=== PATIENT | female | born 1995 | race African-American/Black ===

== ENCOUNTER 2022-07-11 08:49 | Inpatient (IN) ==
--- NOTE | 2022-07-06 14:44 | Anesthesiology Consultation ---
Date of Service July 06, 2022 Assessment & Plan (1) Encounter for pre-operative examination: Chart Review Chart Review: entry engineer initiated -COVID screening: Per PAT nursing assessment on 07/06/22. No known COVID-19 po sitive contacts or current COVID-19 related symptoms. Travel screen negative. Patient vaccinated for Covid. At surgeon discretion if preop Covid testing being done. History Surgery Operation Date: 07/11/22 10:25 Proposed Procedures p Section (Delivery of Baby Through Abdominal Incision) - Kaci Bar MD, FACOG Height/Weight Height: 5 ft 6 in Weight: 60 kg Allergies Allergy/AdvReac Type Severity Reaction Status Date / Time No Known Allergies Allergy Verified 07/06/22 14:05 Medications Home Medications Medication Instructions Recorded Confirmed Last Taken prenat.vits,aman,qum-judm-lrnuw 1 tab PO DAILY #90 tabs 01/05/22 07/06/22 Unknown ferrous sulfate 134 mg (27 mg 134 mg PO UD 07/06/22 07/06/22 Unknown iron) tablet Past Medical History Medical History Patient denies significant medical history Past Family History Family History Father Diabetes Hypertension Denies family history of Ovarian cancer Breast cancer Colorectal cancer Past Surgical History Surgical History S/P section Social History Smoking Status: Never smoker Do You Dip or Chew Tobacco: No Hx Alcohol Use: No Hx Substance Use: No substance use type: does not use
--- NOTE | 2022-07-07 17:53 | History & Physical Report ---
Date of Service July 07, 2022 Assessment & Plan (1) Previous delivery affecting , antepartum: (2) with 39 completed weeks gestation: Plan Plan repeat c/s. The risks of the procedure discussed with the patient including anesthesia, bleeding, transfusion, infection and poor wound healing, damage to surrounding structures, need for further surgery, injury to baby, heart attack, blood clot , stroke and . Consent reviewed and signed. Questions answered. Planned for 07/11/22. History of Present Illness Chief Complaint: presents for repeat c/s Primary Care Provider: NO PCP Patient is a 26yoaf, G2P 1001 who presents at 39 weeks for repeat c/s. Her first c/s was in [facility] for suspected LGA and FTP and unable to obtain report. Given this, have recommended c/s. Her has been uncomplicated. and Delivery Plans Previous in [facility] -plans repeat at 39 wks--having issues getting report. C/S SCHEDULED FOR 07/11/[address] VÁZQUEZ +GBS in genital culture-treat in labor OB Labs: Blood Type O Positive 12/15/21 Antibody Screen NEGATIVE 12/15/21 Hemoglobin 10.6 g/dl (12.0-16.0) L 04/28/22 Hematocrit 32.6 % (34.1-44.9) L 04/28/22 Mean Corpuscular Volume 82.7 fL (80-100) 12/15/21 Platelet Count 293 K/uL (130-400) 12/15/21 Rubella IgG Antibody Immune (Immune) 12/15/21 Rapid Plasma Reagin Nonreactive (Nonreactive) 12/15/21 Hepatitis B Surface Antigen. NON-REACTIVE (NON-REACTIVE) 12/15/21 Hepatitis C Antibody (EIA) NON-REACTIVE (NON-REACTIVE) 12/15/21 HIV (1&2) Ag and Ab Confirmation NON-REACTIVE (NON-REACTIVE) 12/15/21 Glucose 1 Hour 50 gm Load 134 mg/dl (70-130) H 04/28/22 Maternal Serum Alpha Fetoprotein 24.0 ng/mL 02/02/22 OB Optional Labs: Chlamydia trachomatis RNA NOT DETECTED (NOT DETECTED) 12/15/21 Neisseria gonorrhoeae RNA NOT DETECTED (NOT DETECTED) 12/15/21 Alpha Fetoprotein Triple Screen SEE NOTE 02/02/22 Labs Reviewed: neg cf/sma low risk panorama afp neg GBS positive Allergies Allergy/AdvReac Type Severity Reaction Status Date / Time No Known Allergies Allergy Verified 07/07/22 13:37 Home Medications Medication Instructions Recorded Confirmed Type prenat.vits,aman,ajs-xgps-eggvj 1 tab PO DAILY #90 tabs 01/05/22 07/07/22 Rx ferrous sulfate 134 mg (27 mg 134 mg PO UD 07/06/22 07/07/22 History iron) tablet Patient History Medical History Patient denies significant medical history Surgical History S/P section Family History Father Diabetes Hypertension Denies family history of Ovarian cancer Breast cancer Colorectal cancer Social History Smoking Status: Never smoker Second Hand Exposure: No; Hx Alcohol Use: No Hx Substance Use: No Preferred Language: Maldivian Communication Ability: Effective Automobile Seat Cover Installer Required: No Beliefs That Will Affect Care: None marital status: marital status details: Marlo Lee (33) [phone] Current Living Situation: Spouse and Family Current Living Situation Comment: lives with spouse, son, no pets current occupational status: unemployed current occupation: homemaker Feels Safe at Home: Yes Assistive Devices: None OB History Past Pregnancies Del. Date GA wks Lbr Lgth wt Sex Type del Anes Place Del Prov ? Comment 03/21/19 38 7-4 MB O ther [place] No LGA, FTP PSYCHOLOGIST CHIEF History noncontributory Physical Exam Constitutional: WD/WN, vitals as above Neck: trachea midline, no thyromegaly Respiratory: normal respiratory effort, lungs clear to auscultation Cardiovascular: RRR, no murmur, no edema Extremities: no calf tenderness and no edema Gastrointestinal (Abdomen): soft, gravid, nt, keloid scar. Coding Level of Care Code None Diagnoses Previous delivery affecting , antepartum O34.219 with 39 completed weeks gestation Z3A.39
[~2022-07-11 08:49] MED LIST: CITRIC ACID/SODIUM CITRATE 15 ML UDC PO SCH; ceFAZolin 2000MG 2,000 MG/15 ML SYR IV SCH
[2022-07-11] MEDS ORDERED: LACTATED RINGER'S 1,000 ML IV SCH ×3 (09:15→12:00)
[2022-07-11 09:34] LABS: Basophils # (auto) 0.02 K/uL (0-0.2); Basophils % (auto) 0.3 %; Eosinophils # (auto) 0.08 K/uL (0-0.50); Eosinophils % (auto) 1.2 %; Hemoglobin 11.7 g/dl (12.0-16.0); Immature Granulocytes # (auto) 0.06 K/uL (0.00-0.02); Immature Granulocytes % (auto) 0.9 %; Lymphocytes # (auto) 1.34 K/uL (1.2-3.4); Lymphocytes % (auto) 19.4 %; Mean Corpuscular Hemoglobin 28.1 pg (25.0-34.0); Mean Corpuscular Hgb Conc 33.4 g/dL (32.0-36.0); Mean Corpuscular Volume 84.1 fL (80.0-100.0); Mean Platelet Volume 11.7 fL (9.4-12.3); Monocytes % (auto) 10.1 %; Neutrophils % (auto) 68.1 %; Platelet Count 165 K/uL (130-400); RDW Coefficient of Variation 15.9 % (11.5-14.5); RDW Standard Deviation 49.3 fL (36.4-46.3); Red Blood Count 4.16 M/uL (3.93-5.22)
[2022-07-11] MEDS ORDERED: MoRPHine SULFATE PF 1 MG/ML 10 ML AMP/VIAL ONE (10:22)
[2022-07-11] MEDS ORDERED: fentaNYL citrate 100 MCG/2 ML VIAL ONE (10:22)
[2022-07-11] MEDS ORDERED: OXYTOCIN 10 UNITS/ML 10ML VIAL ONE (10:22)
--- NOTE | 2022-07-11 10:59 | History & Physical Bridge Note ---
Date of Service July 11, 2022 History & Physical Bridge Note I have examined the patient, reviewed the History & Physical and in the interval since the performance of the History & Physical I have noted the following changes of clinical significance: no changes noted
[2022-07-11] MEDS ORDERED: PHENYLEPHRINE HCL 10 MG/ML VIAL ONE (12:05)
[2022-07-11] MEDS ORDERED: NALBUPHINE HCL INJ 10 MG/ML AMP IV PRN (12:07)
[2022-07-11] MEDS ORDERED: ePHEDrine sulfate 50 MG/ML AMP IV PRN (12:07)
[2022-07-11] MEDS ORDERED: NALOXONE HCL 1 MG in SODIUM CHLORIDE 0.9% 1000ML 1,000 ML IV PRN (12:07)
[2022-07-11] MEDS ORDERED: MoRPHine SULFATE PF 1 MG/ML 10 ML AMP/VIAL INT SPINAL ONE (12:07)
[2022-07-11] MEDS ORDERED: NALOXONE HCL 0.08 MG in SYRINGE 1.8 ML IV PRN (12:07)
[2022-07-11] MEDS ORDERED: ONDANSETRON INJ 2 MG/ML 2 ML VIAL IV PRN (12:07)
[2022-07-11] MEDS ORDERED: LACTATED RINGER'S 500 ML IV PRN (12:07)
[2022-07-11] MEDS ORDERED: diphenhydrAMINE 50 MG/ML VIAL IV PRN (12:07)
[2022-07-11] MEDS ORDERED: KETOROLAC 30 MG/ML VIAL IV PRN (12:07)
[2022-07-11] MEDS ORDERED: NALOXONE HCL 0.4 MG/1 ML VIAL/CARP IV PRN (12:07)
[2022-07-11] MEDS ORDERED: MEPERIDINE HCL 25 MG/ML CARP/VIAL IV PRN (12:07)
[2022-07-11] MEDS ORDERED: SODIUM CHLORIDE 0.9% 1000ML 1,000 ML IV SCH (12:15)
[2022-07-11] MEDS ORDERED: NO NARCOTICS OR SEDATIVES SCH (12:15)
[2022-07-11] MEDS ORDERED: DC INTRASPINAL MORPHINE SCH (12:15)
[2022-07-11] MEDS ORDERED: MAGNESIUM HYDROXIDE SUSP 30 ML UDC PO PRN (12:55)
[2022-07-11] MEDS ORDERED: DIPHTHERIA/TETANUS/PERTUSSIS 0.5mL SYR/VIAL (Age 7+yrs) IM ONE (12:55)
[2022-07-11] MEDS ORDERED: HYDROCORTISONE ACETATE 25 MG SUPP PR PRN (12:55)
[2022-07-11] MEDS ORDERED: SENNA 8.6 MG TAB PO PRN (12:55)
[2022-07-11] MEDS ORDERED: BENZOCAINE 20% AER SPR 82.5 GM CAN EXT PRN (12:55)
[2022-07-11 13:01] LABS: Base Excess Cord Arterial Bld -7.1 mEq/L (-9-1.8); CO2 Cord Arterial Blood 63 mmHg (39.1-73.5); HCO3 Cord Arterial Blood 23 mmol/L (19.7-28.5); Oxygen Sat Cord Arterial Blood < 60.0 % (<60); PO2 Cord Arterial Blood 26 mmHg (4.1-31.7); pH Cord Arterial Blood 7.16 (7.1-7.38)
--- NOTE | 2022-07-11 13:02 | Operative Report ---
PG Post Operative Report Pre & Post Diagnosis Operation Date: 07/11/22 10:15 Pre-Op Diagnosis: 1.IUP at 39 weeks 2. History of prior Post-Op Diagnosis: Same I identified the patient and participated in the time-out.: Yes Procedure Operation Date: 07/11/22 10:15 Actual Procedures p repeat lower transverse Section in LD; Repeat Lower Uterine Transverse for the of a live infant girl at 1219 - Kaci Bar MD, FACOG Surgeon Kaci Bar MD, FACOG Tobacco Classer Jennifer Stanford RN, MRafia Morrissey, MS 2 Estimated Blood Loss 600 Findings Consistent with Post-Op Diagnosis viable , apgars 7/8. nl uterus /tubes/ovs bilaterally. Somewhat thin shai. Fluids 1400cc Specimens placenta Drains graham Anesthesia Type Spinal Complications none Disposition Accompanied Patient To Recovery: Yes Disposition: L&D Indications Patient is a 26yo female with iup at 39 weeks. Had primary c/s in [facility]. Unable to get operative report. Recommend repeat c/s. Description of Procedure The patient was taken to the operating room where she was identified verbally and by bracelet. She was seated on the operating table where a spinal anesthetic was placed by anesthesia. She was then placed in the supine position with a leftward tilt. A Graham catheter was placed sterilely. the patient was prepped and draped in a normal standard fashion. the anesthetic was tested and found to be adequate. A time-out was held, identifying correct patient, procedure, positioning and preoperative antibiotics. There were no concerns. A Pfannenstiel skin incision was made with a knife and taken down to the underlying layer of fascia with the knife and Bovie electrocautery. Bleeding was attended to with the Bovie. The fascia was incised in the midline with the knife and taken out laterally with scissors. The superior edge of the fascial incision was grasped, elevated and the underlying layer of rectus muscle was taken off bluntly and with scissors. In a similar fashion, the inferior edge of the fascial incision was grasped, elevated and the underlying layer of rectus muscle was taken off bluntly and with scissors. There were dense adhesions of the fascia to the muscle.l The muscles were bluntly in the midline. The peritoneum was entered sharply. The incision was then stretched. The bladder blade was placed. The vesicouterine peritoneum was identified, entered with scissors and taken out laterally with scissors. The bladder flap was created digitally A hysterotomy incision was scored with a knife and the incision was stretched superiorly and inferiorly with the marine railway operator's fingers. The operators hand was placed into the incision and the head was delivered with vacuum assist. No nuchal cord. The nose and mouth were bulb suctioned. the rest of the infant was then delivered without difficulty. The nose and mouth were again bulb suctioned. The cord was clamped and cut and the infant was then handed off to the awaiting manager adult for drying and attention. Cord blood and segment were obtained. The placenta was expressed. The uterus was exteriorized and cleared of all clot and debris with moistened laparotomy sponges. The hysterotomy incision was repaired in two layers, the first in a running locked layer, the second in an imbricating layer. Hemostasis was noted to be good. Posterior cul-de-sac was irrigated and cleared of all clot and debris. The hysterotomy incision was again inspected and found to be hemostatic. the uterus was reinteriorized. Hysterotomy incision was again inspected. One figure of 8 suture needed for hemostasis. Kenzie was placed to assist with hemostasis. Hemostasis was then excellent Rectus muscles were reapproximated with several interrupted stitches of 0 Vicryl. The fascia was then reapproximated with 0 Vicryl starting at the edges and meeting in the midline. The subcuticular tissues were copiously irrigated and bleeding was attended to with cautery. The skin was then closed with 4-0 Vicryl in a subcuticular fashion. All sponge, lap and needle counts correct x 2. The patient was taken to the recovery room in stable condition. I attest to the content of the Intraoperative Record and any orders documented therein. Any exceptions are noted below. OB Procedure Charges 70934
[2022-07-11 13:03] LABS: Base Excess Cord Venous Blood -4.3 mEq/L (-7.7-1.9); Cord Venous Blood HCO3 22 mmol/L (18.4-26.8); Cord Venous Blood PCO2 42 mmHg (30.4-57.2); Cord Venous Blood PO2 35 mmHg (14.1-43.3); Cord Venous Blood pH 7.32 (7.20-7.44)
[2022-07-11] MEDS ORDERED: ARISTA ABSORBABLE HEMOSTAT 3GM TOP ONE (13:13)
--- NOTE | 2022-07-11 14:17 | Anesthesiology Progress Note ---
Date of Service July 11, 2022 Anesthesia Post Procedure Vital Signs Vital Signs: Temp Pulse Resp BP Pulse Ox 07/11/22 14:00 20 07/11/22 13:50 20 07/11/22 13:40 18 07/11/22 13:30 18 07/11/22 13:20 18 07/11/22 13:10 20 07/11/22 13:00 97.5 F L 20 07/11/22 09:26 98.4 F 20 07/11/22 14:11 79 99 07/11/22 14:06 86 97 07/11/22 14:07 87 117/69 07/11/22 14:01 64 98 07/11/22 13:56 61 98 07/11/22 13:57 60 114/64 07/11/22 13:51 63 100 07/11/22 13:46 68 99 07/11/22 13:47 67 115/63 07/11/22 13:41 65 98 07/11/22 13:36 65 99 07/11/22 13:37 66 118/65 07/11/22 13:31 77 99 07/11/22 13:27 77 115/62 07/11/22 13:26 75 99 07/11/22 13:21 63 98 07/11/22 13:16 71 99 07/11/22 13:17 72 108/64 07/11/22 13:11 68 98 07/11/22 13:06 67 97 07/11/22 13:07 74 108/68 07/11/22 13:01 81 99 07/11/22 12:57 81 112/60 07/11/22 12:56 77 99 07/11/22 09:05 97.9 F 96 H 20 115/61 Transfer of Care Handoff Completed per policy Notes Mental Status: alert / awake / arousable and participated in evaluation Nausea / Vomiting: adequately controlled Pain: adequately controlled Airway Patency, RR, SpO2: stable & adequate BP & HR: stable & adequate Hydration State: stable & adequate Neuraxial Anesthesia: was administered and sensory block is resolving Anesthetic Complications: no major complications apparent and Pt Satisfied with anesthetic care
[2022-07-11] MEDS: OXYTOCIN 20 UNITS in LACTATED RINGER'S 1,000 ML IV SCH (15:09)
[2022-07-11] MEDS: DOCUSATE SODIUM 100 MG CAP PO SCH (20:38)
[2022-07-11] MEDS: SIMETHICONE 80 MG CHEW PO SCH (20:38)
[2022-07-12] MEDS: OXYTOCIN 20 UNITS in LACTATED RINGER'S 1,000 ML IV SCH
[2022-07-12] MEDS ORDERED: ONDANSETRON INJ 2 MG/ML 2 ML VIAL IV PRN (06:07)
[2022-07-12] MEDS ORDERED: KETOROLAC 30 MG/ML VIAL IV PRN (06:07)
[2022-07-12] MEDS ORDERED: diphenhydrAMINE 50 MG/ML VIAL IV PRN (06:07)
[2022-07-12] MEDS ORDERED: PROMETHAZINE HCL 25 MG in SODIUM CHLORIDE 0.9% 50 ML IV PRN (06:07)
[2022-07-12] MEDS ORDERED: diphenhydrAMINE Capsule 25 MG CAP PO PRN (06:07)
[2022-07-12] MEDS ORDERED: MEPERIDINE HCL 50 MG/ML CARP IV PRN (06:07)
--- NOTE | 2022-07-12 06:49 | Obstetrical Progress Note ---
Date of Service July 12, 2022 Assessment & Plan (1) Previous delivery affecting , antepartum: Postop day #1 from section the patient is doing well she has no extremity pain incision is clean dry and intact we will encourage ambulation today Subjective Diet Tolerance:: regular diet Lochia:: Small Current Pain Level(1-10): 1 Constitutional: + as per Subjective / HPI Physical Exam Constitutional WD/WN, vitals as above well developed and well nourished Respiratory normal respiratory effort, lungs clear to auscultation normal respiratory effort Cardiovascular RRR, no murmur, no edema Gastrointestinal (Abdomen) normal bowel sounds, soft, nontender, no hepatosplenomegaly Results & Data ([facility]) Vital Signs (Past 12 Hours) Vital Signs Temp Pulse Resp BP Pulse Ox O2 Del Method 07/12/22 06:00 18 98 07/12/22 05:00 18 98 07/12/22 04:00 98.4 F 94 H 18 105/68 96 Room Air 07/12/22 04:00 18 96 07/12/22 03:00 18 96 07/12/22 02:00 18 97 07/12/22 01:00 18 98 07/12/22 00:00 18 96 07/11/22 23:00 18 98 07/12/22 00:10 99.0 F 87 18 112/67 98 Room Air 07/11/22 22:00 18 98 07/11/22 21:00 18 98 07/11/22 20:00 18 99 07/11/22 20:40 97.9 F 82 18 103/65 07/11/22 19:00 18 98
[2022-07-12 07:07] LABS: Basophils # (auto) 0.03 K/uL (0-0.2); Basophils % (auto) 0.3 %; Eosinophils # (auto) 0.18 K/uL (0-0.50); Eosinophils % (auto) 1.7 %; Hematocrit (blood only) 33.8 % (34.1-44.9); Hemoglobin 11.1 g/dl (12.0-16.0); Immature Granulocytes # (auto) 0.08 K/uL (0.00-0.02); Immature Granulocytes % (auto) 0.8 %; Lymphocytes # (auto) 1.14 K/uL (1.2-3.4); Lymphocytes % (auto) 10.9 %; Mean Corpuscular Hemoglobin 27.7 pg (25.0-34.0); Mean Corpuscular Hgb Conc 32.8 g/dL (32.0-36.0); Mean Corpuscular Volume 84.3 fL (80.0-100.0); Mean Platelet Volume 11.9 fL (9.4-12.3); Monocytes # (auto) 0.77 K/uL (0.24-0.82); Monocytes % (auto) 7.4 %; Neutrophils # (auto) 8.27 K/uL (1.4-6.5); Neutrophils % (auto) 78.9 %; Platelet Count 157 K/uL (130-400); RDW Coefficient of Variation 15.8 % (11.5-14.5); RDW Standard Deviation 48.6 fL (36.4-46.3); Red Blood Count 4.01 M/uL (3.93-5.22); White Blood Count 10.47 K/ul (4.8-10.8)
[2022-07-12] MEDS: oxyCODONE/ACETAMINOPHEN 5mg/325mg TAB PO PRN (08:32)
[2022-07-12] MEDS: PRENATAL VITAMIN 1 TAB PO SCH (08:32)
[2022-07-12] MEDS: DOCUSATE SODIUM 100 MG CAP PO SCH ×2 (08:32→19:34)
[2022-07-12] MEDS: FERROUS SULFATE 325 MG TAB PO SCH (08:32)
[2022-07-12] MEDS: SIMETHICONE 80 MG CHEW PO SCH ×5 (08:32→19:34)
[2022-07-12] MEDS: IBUPROFEN 600 MG TAB PO PRN ×2 (08:33→19:34)
[2022-07-12] MEDS: LACTATED RINGER'S 1,000 ML IV SCH ×2 (15:33→15:34)
[2022-07-12] MEDS ORDERED: bisacodyL 5 MG TABEC PO SCH (20:00)
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
[2022-07-13 07:23] LABS: Hematocrit (blood only) 34.1 % (34.1-44.9); Hemoglobin 11.2 g/dl (12.0-16.0)
[2022-07-13] MEDS: IBUPROFEN 600 MG TAB PO PRN (11:40)
[2022-07-13] MEDS: SIMETHICONE 80 MG CHEW PO SCH ×2 (11:40→14:22)
[2022-07-13] MEDS: DOCUSATE SODIUM 100 MG CAP PO SCH (11:41)
[2022-07-13] MEDS: PRENATAL VITAMIN 1 TAB PO SCH (11:41)
[2022-07-13] MEDS: oxyCODONE/ACETAMINOPHEN 5mg/325mg TAB PO PRN (11:41)
[2022-07-13] MEDS: FERROUS SULFATE 325 MG TAB PO SCH (11:41)
[2022-07-13] MEDS ORDERED: bisacodyL 10 MG SUPP PR PRN (12:55)
--- NOTE | 2022-07-14 12:27 | Discharge Summary ---
Date of Service July 14, 2022 Admission HPI Per Admitting Provider Patient is a 26yoaf, G2P 1001 who presents at 39 weeks for repeat c/s. Her first c/s was in [place] for suspected LGA and FTP and unable to obtain report. Given this, have recommended c/s. Her has been uncomplicated. and Delivery Plans Previous in [place] -plans repeat at 39 wks--having issues getting report. C/S SCHEDULED FOR 07/11/[address] VÁZQUEZ +GBS in genital culture-treat in labor OB Labs: Blood Type O Positive 12/15/21 Antibody Screen NEGATIVE 12/15/21 Hemoglobin 10.6 g/dl (12.0-16.0) L 04/28/22 Hematocrit 32.6 % (34.1-44.9) L 04/28/22 Mean Corpuscular Volume 82.7 fL (80-100) 12/15/21 Platelet Count 293 K/uL (130-400) 12/15/21 Rubella IgG Antibody Immune (Immune) 12/15/21 Rapid Plasma Reagin Nonreactive (Nonreactive) 12/15/21 Hepatitis B Surface Antigen. NON-REACTIVE (NON-REACTIVE) 12/15/21 Hepatitis C Antibody (EIA) NON-REACTIVE (NON-REACTIVE) 12/15/21 HIV (1&2) Ag and Ab Confirmation NON-REACTIVE (NON-REACTIVE) 12/15/21 Glucose 1 Hour 50 gm Load 134 mg/dl (70-130) H 04/28/22 Maternal Serum Alpha Fetoprotein 24.0 ng/mL 02/02/22 OB Optional Labs: Chlamydia trachomatis RNA NOT DETECTED (NOT DETECTED) 12/15/21 Neisseria gonorrhoeae RNA NOT DETECTED (NOT DETECTED) 12/15/21 Alpha Fetoprotein Triple Screen SEE NOTE 02/02/22 Labs Reviewed: neg cf/sma low risk panorama afp neg GBS positive Discharge Data Consultations 07/11/22 09:02 Consult Anesthesiology Stat Procedures Performed Operation Date: 07/11/22 10:15 Actual Procedures p Section in LD; Repeat Lower Uterine Transverse for the of a live infant girl at 1219 - Kaci Vázquez MD, FACOG Hospital Course (1) examination following delivery: Plan Patient was admitted and underwent a repeat , tolerated well, please see operative report. EBL--600cc. course uncomplicated--tolerated a regular diet, ambulated without difficulty, voided after removal of her Ruiz, pain controlled on oral pain meds. Had some borderline blood pressures towards the end of the stay. Will f/u in one week in the office for bp check. no s/s of preeclampsia. Discharge H/H was 11.2/34. Coding Level of Care Code None Diagnoses examination following delivery Z39.2
== END 2022-07-13 13:30 | disposition home or self-care (01) | DRG 788 ==
LOC: 4S1 08:49 → EDSTATUS 10:25 → 4E2 15:50